=== PATIENT | male | born 1975 | race Caucasian/White ===

== ENCOUNTER 2020-12-23 02:41 | Emergency (ER) | payer SELFPAY ==
[~2020-12-23] VITALS: Ht 190.5 cm; Wt 113.4 kg
== END 2020-12-23 10:11 | disposition home or self-care (01) ==
LOC: ED 02:41
DX: S06.0X0A Concussion without loss of consciousness, initial encounter (principal); S01.511A Laceration without foreign body of lip, initial encounter; F10.920 Alcohol use, unspecified with intoxication, uncomplicated; W01.198A Fall on same level from slipping, tripping and stumbling with subsequent striking against other object, initial encounter; Y93.89 Activity, other specified; Y92.89 Other specified places as the place of occurrence of the external cause; Y99.8 Other external cause status